=== PATIENT | male | born 1955 | race African-American/Black ===

== ENCOUNTER → 2017-03-27 | Outpatient (CLI) | payer OTHER ==
[~2017-03-27] VITALS: Ht 167.6 cm; Wt 77.1 kg
[~2017-03-27] MED LIST: ASPIRIN325 PO; BENZTROPINE ME0.5 MG PO; CENTRUM MEN'S1 EACH PO; CLOBETASOL EMOL15 GM TOP; CLOMIPRAMINE HC50 M1 PO; CLONAZEPAM 0.50.5 M1 PO; COLACE100 MG PO; COUGH DROPS5 MG PO; DEPAKOTE 250MG250 M1 PO; HALOPERIDOL 2 MG2 M1 PO; HYDROCODONE-ACE15 ML PO; IMIPRAMINE HCL25 MG PO; LEVOTHYROXINE0.2 M1 PO; LOMOTIL TABLET1 EACH PO; LOPERAMIDE 2 MG2 M1 PO; LORATIDINE 10 M10 M1 PO; MAPAP325 MG PO; MILK OF MA2400 MG/10 PO; MIRALAX17 GM PO; NORTRIPTYLINE H50 M3 PO; OMEPRAZOLE 20 M20 M1 PO; RANITIDINE HCL300 MG PO; ROBAFEN-DM SYR118 ML PO; ROBITUSSIN100 MG/53 PO; SEROQUEL XR400 M1 PO; SYNTHROID100 MCG PO; TOPROL XL25 MG PO; ZOFRAN ODT4 MG PO
--- NOTE | ~2017-03-27 | P ---
[facility] [place] [address] PROCEDURE REPORT Name: PITO WEBER Room #: REG DOROTEO AllysonAllyson#: [id number] Admission: 03/27/17 Attend Phys: Hermann Boykin Discharge: Date of : 55 Report #: [id number] THIS REPORT FOR: //name// CC: Hermann Charlton DO DATE OF SERVICE: 03/27/2017 PROCEDURE PERFORMED: Upper endoscopy. HISTORY OF PRESENT ILLNESS: The patient is a 61-year-old male who is nonverbal, requires constant caregiver, was seen in the office on 01/24/2017, with recurrent nausea and vomiting. He has a history of gastroesophageal reflux disease. We placed the patient on Zofran, which has been helpful, but he continues to have some symptoms. Plan is for upper endoscopy. PROCEDURE: The risks and benefits of the procedure were explained to the durable power of trade mark attorney, those risks including, but not limited to bleeding, perforation, and the risk of sedation. They understood these risks and gave informed consent. Sedation was given using propofol per anesthesia. Next, using a standard An[employer] Digital Median upper endoscope, the scope was placed in the patient's mouth and advanced under direct vision through the esophagus, stomach and into the second portion of the duodenum. The upper and mid esophagus were normal. In the distal esophagus, there was severe grade D erosive esophagitis, some old food was kind of noted in this area, this was pushed down into the stomach. There was obvious reflux noted. This area was aspirated away. Upon entering the stomach, a large amount of food was noted throughout the stomach consistent with likely gastroparesis. The gastric mucosa was normal. There was no evidence of hiatal hernia. The pylorus was normal and patent. The duodenal bulb, first and second portion were all normal. The scope was then withdrawn and the procedure terminated. The patient tolerated the procedure well. IMPRESSION: 1. Large amount of food residual suggesting gastroparesis, which obviously could cause intermittent nausea, vomiting and significant reflux. 2. Grade C erosive esophagitis. RECOMMENDATIONS: 1. Continue Zofran on a daily basis. 2. We will add erythromycin 125 mg p.o. t.i.d. for the promotility effect. 3. We will increase his Prilosec from 20 mg a day to b.i.d. [address] [address] PROCEDURE REPORT Name: PITO WEBER Room #: REG DOROTEO Slim#: [id number] Admission: 03/27/17 Attend Phys: Hermann Boykin Discharge: Date of : 55 Report #: [id number] Thank you for allowing me to participate in his care. <ELECTRONICALLY SIGNED> By: Hermann Macias MD 04/08/17 [id number] Hermann Macias MD /nt
[2017-03-27 12:20] LABS: BE(vivo) -1.4 mmol/L (-2 to +3); HCO3 23.5 mmol/L (22.0-26.0); PCO2 40.6 mmHg (35.0-45.0); PO2 276.7 mmHg (80.0-100.0); pH 7.381 (7.360-7.450); sO2 99.6 % (92.0-98.0)
== END | disposition home or self-care (01) ==
LOC: GI 06:43
PROVIDERS: Anesthesiology
DX: K21.0 Gastro-esophageal reflux disease with esophagitis (principal); Z79.899 Other long term (current) drug therapy
CPT/HCPCS: 62110; 62900